=== PATIENT | male | born 1975 | race Two or more races ===

== ENCOUNTER 2016-04-08 14:48 | Emergency (ER) | payer SELFPAY ==
[~2016-04-08] VITALS: Ht 182.9 cm; Wt 86.2 kg
[2016-04-08 15:09] VITALS: BP 142/83
== END 2016-04-08 18:25 | disposition left against medical advice (07) ==
LOC: ER 14:53
DX: R20.0 Anesthesia of skin (principal); M54.9 Dorsalgia, unspecified; Z53.21 Procedure and treatment not carried out due to patient leaving prior to being seen by health care provider

== ENCOUNTER 2018-11-22 11:31 | Emergency (ER) | payer SELFPAY ==
[~2018-11-22] VITALS: Ht 185.4 cm; Wt 83.9 kg
[2018-11-22 11:57] VITALS: BP 133/90
[2018-11-22 12:32] LABS: Basophils # (auto) 0.1 uL; Basophils % (auto) 0.5 % (0.0-2.0); Eosinophils # (auto) 0 uL; Eosinophils % (auto) 0.1 % (0.0-7.0); Hematocrit 48.6 % (41.0-53.0); Hemoglobin 16.5 g/dL (13.5-17.5); Lymphocytes # (auto) 2.3 uL; Lymphocytes % (auto) 13.5 % (10.0-50.0); Mean Corpuscular Hemoglobin 28.7 pg (28.0-32.0); Mean Corpuscular Volume 84.4 fL (80.0-100.0); Monocytes # (auto) 1.1 uL; Monocytes % (auto) 6.6 % (0.0-12.0); Neutrophils # (auto) 13.6 uL; Neutrophils % (auto) 79.3 % (37.0-80.0); Nucleated Red Blood Cells % 0.4 %; Platelet Count (auto) 258 10^3/uL (140-450); Red Blood Cells 5.76 10^6/uL (4.5-5.90); Red Cell Distribution Width 13.5 % (11.8-14.3); White Blood Cell 17.2 10^3/uL (4.4-10.8)
[2018-11-22 12:43] LABS: Potassium 3.6 mmol/L (3.5-5.1)
[2018-11-22 12:51] LABS: Albumin 4.4 g/dL (3.4-5.0); BUN/Creatinine Ratio 13.3; Bilirubin, Total 1.1 mg/dL (0.2-1.0); Calcium 9.2 mg/dL (8.5-10.1); Total Protein 8.2 g/dL (6.4-8.2)
== END 2018-11-22 13:47 | disposition left against medical advice (07) ==
LOC: ER 11:31
DX: R10.84 Generalized abdominal pain (principal); F17.210 Nicotine dependence, cigarettes, uncomplicated; Z86.73 Personal history of transient ischemic attack (TIA), and cerebral infarction without residual deficits
CPT/HCPCS: 36415; 80053; 83690; 85025